=== PATIENT | female | born 1955 | race Caucasian/White ===

== ENCOUNTER 2019-11-20 10:08 | Emergency (ER) | payer MEDICARE, SELFPAY ==
[2019-11-20 10:19] VITALS: BP 144/64; PULSE 72; RESP 18; TEMP 36.4; O2SAT 99
--- NOTE | 2019-11-20 10:33 | ED.GENADULT ---
HPI - General Adult General Chief complaint: Eye Problems Stated complaint: Eye Pain Time Seen by Provider: 11/20/19 10:33 Source: patient Mode of arrival: ambulatory Limitations: no limitations History of Present Illness HPI narrative: 63-year-old female patient presents to the [facility] with complaints of a stye to the left eye as well as clicking to the left ear. Patient states she has had a lot of sinus issues for the past couple of days and is unable to take any type Zyrtec, Vero or Claritin. Patient states she is able to take Benadryl but has not tried it year. Patient states she has been taking [id number] Coricidin for her symptoms. Patient states that when she swallows or chews she notices that she has a clicking to the left ear. Patient states she is also had a little wound to the left lower lid of the eye that has been draining some green drainage yesterday. Denies any fevers. Denies any coughing, sore throat or runny nose. Related Data Home Medications Medication Instructions Recorded Confirmed Pepcid 11/20/19 ProAir HFA 11/20/19 Singulair 11/20/19 amitriptyline 25 mg PO HS 11/20/19 11/20/19 Allergies Allergy/AdvReac Type Severity Reaction Status Date / Time acetaminophen Allergy Mild Verified 06/27/18 11:10 cetirizine Allergy Mild Verified 06/27/18 11:10 ibuprofen Allergy Mild Verified 06/27/18 11:10 oxycodone Allergy Mild N/V Verified 06/27/18 11:10 Penicillins Allergy Mild BLISTERS Verified 06/27/18 11:10 SKIN WHEN SHE URINATES propoxyphene Allergy Mild N/V Verified 06/27/18 11:10 adhesive tape Allergy Unknown Verified 06/27/18 11:10 citrus Allergy Intermediate Hives / Uncoded 10/09/13 08:45 Red Face CLARITINE Allergy Mild Uncoded 11/24/08 11:17 LORETADINE Allergy Mild Uncoded 11/24/08 11:17 SHELLFISH AdvReac Intermediate Hives / Uncoded 06/27/18 11:10 Red Face Review of Systems Review of Systems: Narrative: CONSTITUTIONAL: Denies fever, chills, or sweats. EYES: Denies visual changes, redness, positive green discharge and a small wound to left lower lid ENT: Denies rhinorrhea, positive nasal congestion, denies sore throat, positive clicking to left ear CARDIOVASCULAR: Denies chest pain, palpitations, or edema. RESPIRATORY: Denies cough or dyspnea. GASTROINTESTINAL: Denies abdominal pain, nausea, vomiting, or diarrhea. GENITOURINARY: Denies dysuria or hematuria. SKIN: Denies rash or itching. MUSCULOSKELETAL: Denies back pain, joint pain, or myalgia. NEUROLOGIC: Denies headache, numbness, or weakness. PSYCHIATRIC: Denies anxiety or depression. [facility] Family History Family History Mother Family history of arthritis, Onset Age: 71 Social History Social History Alcohol intake: current Gender identity (if verbalized by the patient): Female Comments At the time of my signature I agree with nursing past medical history, surgical, social, and family history. There is no relevant family history pertinent to the presenting complaint. Exam Narrative: Exam Narrative: GENERAL: Well-appearing, well-nourished, and in no acute distress. HEAD: Normocephalic, atraumatic. Slight tenderness noted to maxillary sinuses on palpation. EYES: PERRLA and EOMI. ENT: Nares with erythema and edema noted to the left side, no rhinorrhea or epistaxis. Mucous membranes moist. Posterior pharynx with no erythema, tonsillectomy, exudates or lesions present. Bilateral TMs are clear no erythema or foreign bodies in the canal. NECK: Supple. No lymphadenopathy CHEST: Clear to auscultation. No respiratory distress. HEART: Regular rate and rhythm. No murmur heard. Normal peripheral pulses. ABDOMEN: Soft, nontender, nondistended, normal active bowel sounds. EXTREMITIES: Normal range of motion. No edema. SKIN: Warm, dry, no rash. NEURO: No focal deficits. Alert and or
== END 2019-11-20 10:52 | disposition home or self-care (01) ==
PROVIDERS: Emergency Provider Nurse Practitioner Family; PCP Internal Medicine
DX: H00.015 Hordeolum externum left lower eyelid (principal); J01.00 Acute maxillary sinusitis, unspecified; J45.909 Unspecified asthma, uncomplicated; Z87.891 Personal history of nicotine dependence; G25.81 Restless legs syndrome
CPT/HCPCS: 99213; G0463

== ENCOUNTER 2020-02-17 12:46 | Outpatient (CLI) | payer MEDICARE, SELFPAY ==
--- NOTE | ~2020-02-17 | XR_ITS ---
XR abdomen/kub 1V 02/17/2020 13:10 Indication: Left renal stone Procedure: KUB Comparison: 08/21/2019 Findings: Stable left renal stone measuring 8 mm. There are cholecystectomy clips. Bowel pattern is n onobstructive. No suspect ureteral stones. Lung bases unremarkable. Impression: 1: Stable left renal stone measuring 8 mm. Reviewed, dictated and finalized at location A. Impression: 1: Stable left renal stone measuring 8 mm.
== END 2020-02-17 12:47 | disposition home or self-care (01) ==
PROVIDERS: PCP Internal Medicine; Visit Provider Internal Medicine
DX: N20.0 Calculus of kidney (principal)
CPT/HCPCS: 74018

== ENCOUNTER 2020-06-10 06:55 | Outpatient (CLI) | payer MEDICARE, SELFPAY ==
--- NOTE | ~2020-06-10 | XR_ITS ---
EXAMINATION: XR abdomen/kub 1V DATE: 06/10/2020 08:17 INDICATION: Left-sided calcium kidney stone. TECHNIQUE: A supine view of the abdomen on 2 radiographs was obtained. COMPARISON: Abdomen radiograph 02/17/2020, CT abdomen and pelvis 03/05/2018 FINDINGS: There are no dilated loops of bowel. Surgical clips in the right upper quadrant are likely from cholecystectomy. Left kidney is obscured by bowel. IMPRESSION: 1. No visible urolithiasis. Reviewed, dictated and finalized at location B. IMPRESSION: 1. No visible urolithiasis.
== END 2020-06-10 06:56 | disposition home or self-care (01) ==
LOC: ANHIMG 08:00
PROVIDERS: PCP Internal Medicine; Visit Provider Urology
DX: N20.0 Calculus of kidney (principal)
CPT/HCPCS: 74018

== ENCOUNTER 2020-10-19 13:01 | Emergency (ER) | payer MEDICARE, SELFPAY ==
[2020-10-19 13:11] VITALS: BP 103/80; PULSE 74; RESP 20; TEMP 36.9; O2SAT 97
--- NOTE | 2020-10-19 13:11 | ED.ASTHMA ---
HPI - Asthma General Chief Complaint: Asthma Stated Complaint: Asthma Complaint Time Seen by Provider: 10/19/20 13:11 Source: patient and RN notes reviewed Mode of arrival: ambulatory Limitations: no limitations History of Present Illness HPI Narrative: 64 year old female who presents to [facility] with complaints of 3 week history of cough, sinus congestion and headache, Patient states that she was tested on the 03 of October for COVID which was negative. Patient states that she has history of asthma and was wheezing yesterday but her lungs are clear to auscultation today. Patient states that she has some tightness to the lateral and lower aspects of her bilateral chest regions that is worse when she takes a deep breath. Patient denies any shortness of breath with patient able to speak in full sentences. patient states that she has been taking Coricidin cold medication OTC and using her inhaler. patient denies any known fevers, chills or sweats. MD complaint: other (toghtness with deep breathing since this morning.URI symptoms for 3 weeks) Onset (ago): week(s) (3 weeks of URI symptoms) Severity: mild Context: recent URI Associated symptoms: dry cough and other (sinus congestion and headache) Asthma History: followed by specialist and other (allergy induced) Treatments Prior to Arrival: inhaled bronchodilator and other (singulair) Related Data Current Asthma Therapy: inhaled bronchodilator and other (singulair) Home Medications Medication Instructions Recorded Confirmed Pepcid 11/20/19 05/29/20 albuterol sulfate 90 mcg/actuation 1 puff INHALATION Q4H PRN 11/29/19 05/29/20 aerosol inhaler montelukast 10 mg tablet 10 mg PO DAILY 11/29/19 05/29/20 calcium carbonate 500 mg calcium 500 mg PO DAILY 12/06/19 05/29/20 (1,250 mg) tablet cholecalciferol (vitamin D3) 125 125 mcg PO DAILY 12/06/19 05/29/20 mcg (5,000 unit) tablet evening primrose oil 500 mg capsule 500 mg PO DAILY cap 12/06/19 05/29/20 lactobacillus combination no.8 3 3,000 mmu cells PO DAILY 12/06/19 05/29/20 billion cell capsule Allergies Allergy/AdvReac Type Severity Reaction Status Date / Time acetaminophen Allergy Mild Verified 06/27/18 11:10 cetirizine Allergy Mild Verified 06/27/18 11:10 ibuprofen Allergy Mild Verified 06/27/18 11:10 oxycodone Allergy Mild N/V Verified 06/27/18 11:10 Penicillins Allergy Mild BLISTERS Verified 06/27/18 11:10 SKIN WHEN SHE URINATES propoxyphene Allergy Mild N/V Verified 06/27/18 11:10 adhesive tape Allergy Unknown Verified 06/27/18 11:10 citrus Allergy Intermediate Hives / Uncoded 10/09/13 08:45 Red Face CLARITINE Allergy Mild Uncoded 11/24/08 11:17 LORETADINE Allergy Mild Uncoded 11/24/08 11:17 SHELLFISH AdvReac Intermediate Hives / Uncoded 06/27/18 11:10 Red Face Review of Systems Review of Systems: Narrative: CONSTITUTIONAL: Denies fever, chills, or sweats. EYES: Denies visual changes, redness, or discharge. ENT: Denies rhinorrhea, congestion, sore throat, or otalgia. CARDIOVASCULAR: tightness to posterior and lateral chest with deep breathing,no palpitations, or edema. RESPIRATORY: Positive cough, states no acute dyspnea. GASTROINTESTINAL: Denies abdominal pain, nausea, vomiting, or diarrhea. GENITOURINARY: Denies dysuria or hematuria. SKIN: Denies rash or itching. MUSCULOSKELETAL: Denies back pain, joint pain, or myalgia. NEUROLOGIC: reports some frontal headache,no numbness, or weakness. PSYCHIATRIC: Denies anxiety or depression. All systems reviewed & are unremarkable except as noted in HPI and below PMFSH Past Medical History Medical History (Updated 10/19/20 @ 18:28 by Maxine Garcia NP) Fibromyalgia Irritable bowel syndrome Mixed hyperlipidemia Restless legs syndrome Type 2 diabetes mellitus without complication, without long-term current use of insulin Vitamin D deficiency Surgical History Surgical History
== END 2020-10-19 13:46 | disposition home or self-care (01) ==
PROVIDERS: Emergency Provider Registered Nurse; PCP Internal Medicine
DX: J06.9 Acute upper respiratory infection, unspecified (principal); J45.20 Mild intermittent asthma, uncomplicated; M79.7 Fibromyalgia; E78.2 Mixed hyperlipidemia; G25.81 Restless legs syndrome; E11.9 Type 2 diabetes mellitus without complications; E55.9 Vitamin D deficiency, unspecified
CPT/HCPCS: 99213; G0463

== ENCOUNTER 2020-12-24 08:45 | Outpatient (CLI) | payer MEDICARE, SELFPAY | END 2020-12-24 08:46 | disposition home or self-care (01) | LOC: ANHCOVIDVC 08:45 | PROVIDERS: PCP Internal Medicine | DX: Z23 Encounter for immunization (principal) | CPT/HCPCS: 0001A; 91300 ==

== ENCOUNTER 2021-01-14 08:45 | Outpatient (CLI) | payer MEDICARE, SELFPAY | END 2021-01-14 08:46 | disposition home or self-care (01) | LOC: ANHCOVIDVC 08:45 | DX: Z23 Encounter for immunization (principal) | CPT/HCPCS: 0002A; 91300 ==

== ENCOUNTER → 2021-03-01 07:08 | Outpatient (CLI) | payer MEDICARE, SELFPAY ==
--- NOTE | ~2021-03-01 | MM_ITS ---
EXAMINATION: MM screening [facility] BI w jah HISTORY: Screening TECHNIQUE: Craniocaudal and mediolateral oblique 3-D tomosynthesis images were obtained and synthetic 2-D images were generated. CAD analysis was submitted and interpreted. COMPARISON: Comparison to multiple prior studies sequentially, with oldest reviewed study dated 09/16. BREAST PARENCHYMAL COMPOSITION: There are scattered areas of fibroglandular density. FINDINGS: There is a developing asymmetry in the upper outer quadrant of the right breast, middle thi rd. There are developing clustered indeterminate calcifications lower central aspect of the right chava ast. The left breast is stable without evidence for malignancy. IMPRESSION: 1. Developing right breast asymmetry and clustered indeterminate calcifications. 2. Additional mammographic views and possible breast ultrasound are recommended. BI-RADS Category 0: Incomplete: Needs additional imaging evaluation. Reviewed, dictated and finalized at location A. IMPRESSION: 1. Developing right breast asymmetry and clustered indeterminate calcifications . 2. Additional mammographic views and possible breast ultrasound are recommended . BI-RADS Category 0: Incomplete: Needs additional imaging evaluation.
== END ==
PROVIDERS: PCP Internal Medicine; Visit Provider Internal Medicine
DX: Z12.31 Encounter for screening mammogram for malignant neoplasm of breast (principal); R92.8 Other abnormal and inconclusive findings on diagnostic imaging of breast
CPT/HCPCS: 77063; 77067

== ENCOUNTER 2021-03-22 12:38 | Outpatient (CLI) | payer MEDICARE, SELFPAY ==
--- NOTE | ~2021-03-22 | MMUS_ITS ---
EXAMINATION: MM diagnostic mammo unilat RT, US breast RT complete HISTORY: Developing right breast asymmetry and clustered indeterminate calcifications reported on 02/13 screening mammogram. TECHNIQUE: Additional 3-D tomosynthesis images of the right breast were performed and synthetic 2-D i mages were generated. Magnification views of right breast in 3 projections. CAD analysis was submitte d and interpreted. High resolution complete right breast ultrasound was performed. COMPARISON: 03/01/2021 bilateral digital screening mammogram Prior mammogram including outside mammograms dating back to 10/10/2014 FINDINGS: MAMMOGRAPHIC FINDINGS: There are some scattered punctate benign-appearing microcalcifications. No malignant calcification is evident. No significant new or developing density is evident. ULTRASOUND: There is no evidence of focal abnormal solid or cystic lesion or suspicious shadowing of the right br east. IMPRESSION: 1. Benign findings 2. Routine annual mammographic screening is recommended BI-RADS Category 2: Benign finding(s). Reviewed, dictated and finalized at location A. IMPRESSION: 1. Benign findings 2. Routine annual mammographic screening is recommended BI-RADS Category 2: Benign finding(s).
== END 2021-03-22 12:39 | disposition home or self-care (01) ==
LOC: ANHIMG 12:39
PROVIDERS: PCP Internal Medicine; Visit Provider Internal Medicine
DX: R92.8 Other abnormal and inconclusive findings on diagnostic imaging of breast (principal)
CPT/HCPCS: 76641; 77065

== ENCOUNTER 2021-04-06 14:28 | Outpatient (CLI) | payer MEDICARE, SELFPAY ==
--- NOTE | ~2021-04-06 | XR_ITS ---
EXAMINATION: XR abdomen/kub 1V DATE: 04/06/2021 14:51 INDICATION: Unspecified abdominal pain. TECHNIQUE: A supine view of the abdomen on 2 radiographs was obtained. COMPARISON: CT abdomen and pelvis 03/05/2018 FINDINGS: There are no dilated loops of bowel. There are surgical clips in right abdomen. There is no visible urolithiasis. IMPRESSION: 1. Normal bowel gas pattern. Reviewed, dictated and finalized at location A.
== END 2021-04-06 14:29 | disposition home or self-care (01) ==
LOC: ANHIMG 14:32
PROVIDERS: PCP Internal Medicine; Visit Provider Internal Medicine
DX: R10.9 Unspecified abdominal pain (principal)
CPT/HCPCS: 74018

== ENCOUNTER → 2021-12-11 08:15 | Outpatient (CLI) | payer MEDICARE, SELFPAY ==
--- NOTE | ~2021-12-11 | XR_ITS ---
EXAMINATION: XR wrist RT min 3V INDICATION: Primary osteoarthritis TECHNIQUE: Four views of the right wrist are obtained. COMPARISON: None available FINDINGS: There is moderate osteoarthritis at the first carpometacarpal joint and mild osteoarthritis at the triscaphe joint. Bone alignment is normal. There is no fracture. The soft tissues are unremar kable. IMPRESSION: 1. Polyarticular osteoarthritis. Reviewed, dictated and finalized at location F. N FORESTER
== END ==
PROVIDERS: PCP Plastic Surgery; Visit Provider Plastic Surgery
DX: M19.041 Primary osteoarthritis, right hand (principal)
CPT/HCPCS: 73110

== ENCOUNTER 2022-02-28 12:00 | Emergency (ER) | payer MEDICARE, SELFPAY ==
--- NOTE | ~2022-02-28 | XR_ITS ---
EXAMINATION: XR abdomen/kub 1V DATE: 02/28/2022 12:43 INDICATION: Flank pain. TECHNIQUE: A supine view of the abdomen was obtained. COMPARISON: Abdomen radiograph 04/06/2021 FINDINGS: There are no dilated loops of bowel. There is a moderate volume of stool in the colon. Ther e are surgical clips in right abdomen. There is no visible urolithiasis. IMPRESSION: 1. No visible urolithiasis. 2. Normal bowel gas pattern. Reviewed, dictated and finalized at location B.
--- NOTE | 2022-02-28 12:10 | ED.FEMALEGU ---
HPI - Female Genitourinary General Chief complaint: Urogenital-Female Stated complaint: Possible UTI Time Seen by Provider: 02/28/22 12:10 Source: patient and RN notes reviewed Mode of arrival: ambulatory Limitations: no limitations History of Present Illness HPI Narrative: 66-year-old female presented for complaint of bilateral flank and low back pain and vaginal burning onset yesterday. States the burning occurs just after she has completed urinating. Endorses an episode of urinary incontinence yesterday upon standing. Back pain also worse upon standing or stretching. She took Azo this morning. she endorses a history of kidney stones 2018. States the pain does not feel similar or that severe. Endorses 1 week ago she had a boil on her JOANN area which she expressed herself. She states he still has some of it there. She denies any vaginal bleeding or drainage. Denies hematuria, frequency, urgency, n/v/d/f/c. Hx pre DM, HLD, cervicalgia. Related Data Home Medications Medication Instructions Recorded Confirmed albuterol sulfate 90 mcg/actuation 1 puff INHALATION Q4H PRN 11/29/19 02/28/22 aerosol inhaler montelukast 10 mg tablet 10 mg PO DAILY 11/29/19 02/28/22 calcium carbonate 500 mg calcium 500 mg PO DAILY 12/06/19 02/28/22 (1,250 mg) tablet cholecalciferol (vitamin D3) 125 125 mcg PO DAILY 12/06/19 02/28/22 mcg (5,000 unit) tablet evening primrose oil 500 mg capsule 500 mg PO DAILY cap 12/06/19 02/28/22 lactobacillus combination no.8 3 3,000 mmu cells PO DAILY 12/06/19 02/28/22 billion cell capsule fluticasone propionate 50 1 spray INTRANASAL DAILY 06/08/21 02/28/22 mcg/actuation nasal spray,suspension magnesium 200 mg tablet 400 mg PO DAILY tablet 09/15/21 02/28/22 atorvastatin 10 mg PO DAILY 02/28/22 02/28/22 blood sugar diagnostic [OneTouch 02/28/22 02/28/22 Ultra Test] famotidine 40 mg PO DAILY 02/28/22 02/28/22 Allergies Allergy/AdvReac Type Severity Reaction Status Date / Time acetaminophen Allergy Mild Rash Verified 02/28/22 12:06 cetirizine Allergy Mild Rash Verified 02/28/22 12:06 ibuprofen Allergy Mild Rash Verified 02/28/22 12:06 oxycodone Allergy Mild N/V Verified 02/28/22 12:06 Penicillins Allergy Mild BLISTERS Verified 02/28/22 12:06 SKIN WHEN SHE URINATES propoxyphene Allergy Mild N/V Verified 02/28/22 12:06 adhesive tape Allergy Unknown Rash Verified 02/28/22 12:06 amoxicillin AdvReac Intermediate Blister Verified 02/28/22 12:31 [id number] Reductase AdvReac Intermediate Leg Verified 02/28/22 12:06 Inhibitor cramps, pain citrus Allergy Intermediate Hives / Uncoded 02/28/22 12:06 Red Face CLARITINE Allergy Mild Rash Uncoded 02/28/22 12:06 LORETADINE Allergy Mild Rash Uncoded 02/28/22 12:06 SHELLFISH AdvReac Intermediate Hives / Uncoded 02/28/22 12:06 Red Face Review of Systems Review of Systems: CONSTITUTIONAL: Denies body aches, fever, chills, or sweats. CARDIOVASCULAR: Denies chest pain, palpitations, or edema. RESPIRATORY: Denies cough or dyspnea. GASTROINTESTINAL: Denies abdominal pain, nausea, vomiting, or diarrhea. GENITOURINARY: Reports flank pain SKIN: Denies rash MUSCULOSKELETAL: endorses back pain PMFSH Past Medical History Medical History [place] BMI 40.0-44.9, adult Fibromyalgia Irritable bowel syndrome Mixed hyperlipidemia Restless legs syndrome Type 2 diabetes mellitus without complication, without long-term current use of insulin Vitamin D deficiency Surgical History Surgical History H/O lithotripsy Hx of kidney removal Family History Family History Mother Family history of arthritis, Onset Age: 71 Social History Social History Smoking packs per day: 0.3 Smoking ci
[2022-02-28 12:11] VITALS: BP 85/60; PULSE 81; RESP 18; TEMP 36.2; O2SAT 98
[2022-02-28 12:13] VITALS: BP 85/60; PULSE 81; RESP 18; TEMP 36.2; O2SAT 98
== END 2022-02-28 13:04 | disposition home or self-care (01) ==
PROVIDERS: Emergency Provider Nurse Practitioner Family; PCP Internal Medicine
DX: R30.0 Dysuria (principal); M54.50 Low back pain, unspecified; Z87.891 Personal history of nicotine dependence; M79.7 Fibromyalgia; E78.2 Mixed hyperlipidemia; G25.81 Restless legs syndrome; E11.9 Type 2 diabetes mellitus without complications; Z79.84 Long term (current) use of oral hypoglycemic drugs; E55.9 Vitamin D deficiency, unspecified
CPT/HCPCS: 74018; 81003; 87086; 99213; G0463

== ENCOUNTER → 2022-09-13 12:11 | Outpatient (CLI) | payer MEDICARE, SELFPAY ==
--- NOTE | ~2022-09-13 | MM_ITS ---
EXAMINATION: MM screening [facility] BI w jah HISTORY: Screening mammogram TECHNIQUE: Craniocaudal and mediolateral oblique 3-D tomosynthesis images were obtained and synthetic 2-D images were generated. CAD analysis was submitted and interpreted. COMPARISON: 03/22/2021, 03/01/2021, 09/05/2019 BREAST PARENCHYMAL COMPOSITION: The breasts are almost entirely fatty. FINDINGS: Scattered benign-appearing calcifications are present. No suspicious mass, calcification, o r architectural distortion are identified in either breast to suggest malignancy. There has been no s uspicious interval change. IMPRESSION: 1. No mammographic evidence of malignancy. 2. Recommend routine screening mammography in one year. BI-RADS Category 2: Benign finding(s). Reviewed, dictated and finalized at location A. APIST ASST
== END ==
PROVIDERS: PCP Internal Medicine; Visit Provider Internal Medicine
DX: Z12.31 Encounter for screening mammogram for malignant neoplasm of breast (principal)
CPT/HCPCS: 77063; 77067

== ENCOUNTER → 2023-07-12 13:15 | Outpatient (CLI) | payer MEDICARE, SELFPAY ==
--- NOTE | ~2023-07-12 | MR_ITS ---
MRI of the left shoulder Technique: Axial proton-density fat-sat images, coronal proton density fat-sat and T2 fat-sat images, and sagittal T1-weighted and T2 fat-sat images were acquired. Clinical History: Pain Findings: There is advanced AC joint degenerative change, bony productive changes distal clavicle and small subacromial spur. Coracoclavicular, coracoacromial, and coracohumeral ligaments appear to be i ntact. There is a 1.1 x 0.8 cm area of full-thickness tearing at the posterior aspect of the supraspinatus t endon centrally, somewhat near the myotendinous junction region. Infraspinatus tendon is intact, with moderate tendinosis distally. Subscapularis tendon is intact, with mild tendinosis. Intra-articular biceps tendon is poorly seen. There is probable degenerative tearing of the superior labrum extending to the anterosuperior portion . No significant degenerative change or effusion of the glenohumeral joint. Inferior glenohumeral ligam ent is intact. No muscle atrophy or edema. Impression: 1.1 x 0.8 cm full-thickness tear at the posterior aspect of the supraspinatus tendon, as detailed abo ve. Moderate tendinosis of the infraspinatus tendon. Poor visualization of the intra-articular biceps tendon. Complete rupture is suspected with mild retr action anterior the bicipital groove. Degenerative superior labral tear extending to the anterosuperior portion. Advanced AC joint degenerative change. Reviewed, dictated and finalized at [facility]. Impression: 1.1 x 0.8 cm full-thickness tear at the posterior aspect of the supraspinatus t endon, as detailed above. Moderate tendinosis of the infraspinatus tendon. Poor visualization of the intra-articular biceps tendon. Complete rupture is [place] spected with mild retraction anterior the bicipital groove. Degenerative superior labral tear extending to the anterosuperior portion. Advanced AC joint degenerative change.
== END ==
PROVIDERS: PCP Internal Medicine; Visit Provider Nurse Practitioner Family
DX: M19.012 Primary osteoarthritis, left shoulder (principal)
CPT/HCPCS: 73221

== ENCOUNTER 2023-08-09 14:30 | Outpatient (RCR) | payer MEDICARE, SELFPAY | END 2023-10-02 09:30 | disposition home or self-care (01) | LOC: ANHDMC 14:30 | PROVIDERS: PCP Internal Medicine; Visit Provider Nurse Practitioner Family | DX: E11.649 Type 2 diabetes mellitus with hypoglycemia without coma (principal); Z71.89 Other specified counseling | CPT/HCPCS: G0108; G0109 ==

== ENCOUNTER 2023-09-08 07:47 | Outpatient (CLI) | payer MEDICARE, SELFPAY ==
--- NOTE | ~2023-09-08 | XR_ITS ---
EXAMINATION: XR UGIAC w barium swallow DATE: 09/08/2023 08:48 INDICATION: Atypical chest pain with gastroesophageal reflux disease and shortness of breath TECHNIQUE: The patient drank thick barium, gas-producing crystals, and thin barium. A total of 10,280 fluoroscopic images of the esophagus, stomach, and proximal small bowel were obtained. Fluoroscopy e xposure time was 2.2 minutes. Total DAP was 18.154 Gycm^2 COMPARISON: None. FINDINGS: The esophagus is normal without mass or stricture. Esophageal motility is normal. There is no hiatal hernia. There was no gastroesophageal reflux with provocative maneuvers. The stomach and pr oximal small bowel are normal. IMPRESSION: 1. Normal upper GI study. Reviewed, dictated and finalized at location A. T RELATIONS EXECUTIVE IMPRESSION: 1. Normal upper GI study.
== END 2023-09-08 07:48 | disposition home or self-care (01) ==
PROVIDERS: PCP Emergency Medicine; Visit Provider Nurse Practitioner
DX: R06.02 Shortness of breath (principal); R07.89 Other chest pain; K21.9 Gastro-esophageal reflux disease without esophagitis
CPT/HCPCS: 74246

== ENCOUNTER → 2023-10-11 12:42 | Outpatient (CLI) | payer MEDICARE, SELFPAY ==
--- NOTE | ~2023-10-11 | DEXA_ITS ---
Bone Density Report Name: LIZABETH BREWSTER Age: 67 Sex: Female Ethnicity: White Date of : 1955 Indication: postmenopausal; screening for osteoporosis; height loss; Referring Provider: HUBERT TERESA Study: Bone densitometry was performed. Exam Date: October 11, 2023 Accession number: [id number] Bone Density: Region BMD T-score Z-score Classification AP Spine (L1-L4) 1.094 0.4 2.3 Normal Femoral Neck (Left) 0.790 -0.5 1.1 Normal Total Hip (Left) 0.938 0.0 1.3 Normal Femoral Neck (Right) 0.734 -1.0 0.6 Normal Total Hip (Right) 0.976 0.3 1.6 Normal Total Hip Mean 0.957 0.2 1.5 Normal World Health Organization criteria for BMD impression classify patients as: Normal (T-score at or above -1.0), Osteopenia (T-score between -1.0 and -2.5), or Osteoporosis (T-score at or below -2.5). 10-year Fracture Risk: FRAX not reported because: All T-scores for Spine Total, Hip Total, Femoral Neck at or above -1.0 Clinical Information Provided by Patient: Has used the following medications: Vitamin D, Calcium Patient maximum height was 64 Menopause Age: 59 No regular weight bearing exercise Drinks caffeinated beverages Onset of menses at age 12 Number of children 1 Impression: The patient has normal bone mass. Discussion: BONE DENSITY IS ABOVE THE MINIMUM DESIRABLE LEVEL AT ALL SKELETAL SITES TESTED. This patient?s bone mineral density is above the minimum desirable level (T-score -1.0 or better) at all sites measured. The patient should follow a healthful lifestyle (good nutrition with adequate calcium and vitamin D, and appropriate weight-bearing exercise). Follow-Up: Consider repeating this study in 5 years or sooner if there is some new clinical indication. Reported by: BRAYDEN on 10/11/2023 1:03:00 PM. Reviewed, dictated and finalized at location ADwight CHRISTY
== END ==
PROVIDERS: PCP Emergency Medicine; Visit Provider Emergency Medicine
DX: Z78.0 Asymptomatic menopausal state (principal)
CPT/HCPCS: 77080

== ENCOUNTER → 2023-10-20 10:24 | Outpatient (CLI) | payer MEDICARE, SELFPAY ==
--- NOTE | ~2023-10-20 | MM_ITS ---
EXAMINATION: MM screening [facility] BI w jah HISTORY: Screening mammogram TECHNIQUE: Craniocaudal and mediolateral oblique 3-D tomosynthesis images were obtained and synthetic 2-D images were generated. CAD analysis was submitted and interpreted. COMPARISON: Prior mammograms dating back to 01/24/2017 BREAST PARENCHYMAL COMPOSITION: There are scattered areas of fibroglandular density. FINDINGS: A stable chronic focal asymmetry in the lower right breast is considered benign given the l ack of interval change. No suspicious mass, calcification, or architectural distortion are identified in either breast to suggest malignancy. There has been no suspicious interval change. IMPRESSION: 1. No mammographic evidence of malignancy. 2. Recommend routine screening mammography in one year. BI-RADS Category 2: Benign finding(s). Reviewed, dictated and finalized at location A. ICATING MACHINE OPERATOR
== END ==
PROVIDERS: PCP Emergency Medicine; Visit Provider Nurse Practitioner Family
DX: Z12.31 Encounter for screening mammogram for malignant neoplasm of breast (principal)
CPT/HCPCS: 77063; 77067

== ENCOUNTER 2023-11-30 14:39 | Outpatient (RCR) | payer MEDICARE, SELFPAY | END 2023-11-30 16:55 | disposition home or self-care (01) | LOC: ANHDMC 14:39 | PROVIDERS: PCP Emergency Medicine; Visit Provider Nurse Practitioner Family | DX: E11.649 Type 2 diabetes mellitus with hypoglycemia without coma (principal); Z71.89 Other specified counseling | CPT/HCPCS: G0109 ==

== ENCOUNTER 2024-02-06 10:00 | Emergency (ER) | payer MEDICARE, SELFPAY ==
--- NOTE | 2024-02-06 10:09 | ED.URI ---
HPI - URI/Sore Throat General Chief Complaint: Upper Respiratory Infection Stated Complaint: Dizziness/Nausea Time Seen by Provider: 02/06/24 10:10 Source: patient Mode of arrival: ambulatory Limitations: no limitations History of Present Illness HPI Narrative: Jade is a 68-year-old female patient presenting to the clinic today with complaints of dizziness and nausea since around 4:00 a.m. this morning. She reports she was letting the dogs at this morning and developed unsteadiness and felt as though things were and motion when she was not. States she is getting dizzy going from a lying to sitting/sitting to standing position as well as when standing up still she feels as though things are moving around her when they are not. Fine as though her left ear was popping this morning. Denies any chest pain, shortness of breath, or visual changes. History of hypoglycemia/diabetes, stress incontinence, Related Data Home Medications Medication Instructions Recorded Confirmed calcium carbonate 500 mg PO DAILY 12/06/19 12/04/23 cholecalciferol (vitamin D3) 125 125 mcg PO DAILY 12/06/19 12/04/23 mcg (5,000 unit) tablet (Vitamin D3) fluticasone propionate 50 1 spray intranasal DAILY 06/08/21 12/04/23 mcg/actuation nasal spray,suspension (Flonase Allergy Relief) magnesium 200 mg tablet 400 mg PO DAILY 09/15/21 12/04/23 chlorpheniramine maleate 4 mg 4 mg PO Q6H PRN 12/28/22 12/04/23 tablet (Allergy (chlorpheniramine)) evening primrose oil 500 mg capsule 1,000 mg PO DAILY 12/28/22 12/04/23 indlevcxuazn-mhwhylkx-azlbzp tablet 1 tablet PO DAILY 12/28/22 12/04/23 famotidine 40 mg tablet 40 mg PO DAILY 10/26/23 12/04/23 epinephrine 0.3 mg/0.3 mL 0.3 mg IM ONCE 12/04/23 injection, auto-injector Allergies Allergy/AdvReac Type Severity Reaction Status Date / Time loratadine Allergy Intermediate Rash Verified 12/04/23 13:10 acetaminophen Allergy Mild Rash Verified 12/04/23 13:10 cetirizine Allergy Mild Rash Verified 12/04/23 13:10 ibuprofen Allergy Mild Rash Verified 12/04/23 13:10 oxycodone Allergy Mild N/V Verified 12/04/23 13:10 Penicillins Allergy Mild BLISTERS Verified 12/04/23 13:10 SKIN WHEN SHE URINATES propoxyphene Allergy Mild N/V Verified 12/04/23 13:10 adhesive tape Allergy Unknown Rash Verified 12/04/23 13:10 amoxicillin AdvReac Intermediate Blister Verified 12/04/23 13:10 Pbnlkts-CHU-NjF Reductase AdvReac Intermediate Leg Verified 12/04/23 13:10 Inhibitor cramps, pain citrus Allergy Intermediate Hives / Uncoded 12/04/23 13:10 Red Face SHELLFISH AdvReac Intermediate Hives / Uncoded 12/04/23 13:10 Red Face Review of Systems Review of Systems: Pertinent positives per HPI. Patient denies any fever, chills, rash, headache, visual changes, cough, runny nose, sore throat, shortness of breath, chest pain, palpitations, nausea, vomiting, diarrhea, constipation, abdominal pain, or any urinary issues. [facility] Past Medical History Medical History Atypical chest pain Beau's line BMI 40.0-44.9, adult Esophageal spasm Fibromyalgia GERD (gastroesophageal reflux disease) Hiatal hernia Hyperlipidemia Irritable bowel syndrome Mixed hyperlipidemia Restless legs syndrome SOB (shortness of breath) Type 2 diabetes mellitus without complication, without long-term current use of insulin Vitamin D deficiency Surgical History Surgical History H/O lithotripsy Hx of kidney removal Family History Family History Mother Family history of arthritis, Onset Age: 71 Social History Social History Smoking packs per day: 0.3 Smoking cigarettes per day: 6.0 Years smoked: 15 Smoking pack-years: 4.50 Smoking status: Former smoker Second hand t
[2024-02-06 10:10] VITALS: BP 143/68; PULSE 72; RESP 16; TEMP 35.9; O2SAT 98
--- NOTE | 2024-02-06 10:23 | ECG_ITS ---
SEE SCANNED COPY FOR CONFIRMED REPORT. MTDD
[2024-02-06 10:34] LABS: Glucose Point of Care 143 mg/dl (65-105)
[2024-02-06 10:35] VITALS: BP 142/77
[2024-02-06 10:37] VITALS: BP 141/85
[2024-02-06 10:39] VITALS: BP 141/77
== END 2024-02-06 11:00 | disposition home or self-care (01) ==
PROVIDERS: Emergency Provider Nurse Practitioner Family; PCP Emergency Medicine
DX: R42 Dizziness and giddiness (principal); R81 Glycosuria; E11.65 Type 2 diabetes mellitus with hyperglycemia; Z87.891 Personal history of nicotine dependence; M79.7 Fibromyalgia; K21.9 Gastro-esophageal reflux disease without esophagitis; E78.5 Hyperlipidemia, unspecified; E78.2 Mixed hyperlipidemia; G25.81 Restless legs syndrome; E55.9 Vitamin D deficiency, unspecified
CPT/HCPCS: 81003; 82948; 93005; 99213; G0463

== ENCOUNTER 2024-04-04 16:56 | Emergency (ER) | payer MEDICARE, SELFPAY ==
[2024-04-04 17:00] VITALS: BP 148/84; PULSE 92; RESP 18; TEMP 36.3; O2SAT 100
--- NOTE | 2024-04-04 20:10 | PC.NURSE ---
Pt to intake desk to verbalize i am not going to have any blood drawn or stay. I have multiple older dogs that need to be taken care of so I can not wait any longer. This rn verbalized that if she needs to come back that we are open 08/05.
== END 2024-04-04 20:42 | disposition left against medical advice (07) ==
LOC: ANHED 20:27
PROVIDERS: PCP Emergency Medicine
DX: K59.00 Constipation, unspecified (principal)
CPT/HCPCS: 99199

== ENCOUNTER 2024-04-16 06:38 | Outpatient (CLI) | payer MEDICARE, SELFPAY ==
--- NOTE | ~2024-04-16 | XR_ITS ---
EXAMINATION: XR foot RT 2V DATE: 04/16/2024 06:58 INDICATION: Right foot pain. TECHNIQUE: 2 views of right foot were obtained. COMPARISON: Right foot radiographs 10/09/2013 FINDINGS: Bone alignment is normal. No fracture. There is mild osteoarthritis of some of the interpha langeal joints and midfoot joints. There is an enthesophyte at plantar aspect of calcaneal tuberosity . IMPRESSION: 1. Mild polyarticular osteoarthritis. Reviewed, dictated and finalized at location A.
== END 2024-04-16 06:39 | disposition home or self-care (01) ==
PROVIDERS: PCP Emergency Medicine; Visit Provider Emergency Medicine
DX: M19.071 Primary osteoarthritis, right ankle and foot (principal)
CPT/HCPCS: 73620

== ENCOUNTER 2024-05-15 11:16 | Emergency (ER) | payer MEDICARE, SELFPAY ==
--- NOTE | ~2024-05-15 | XR_ITS ---
XR foot RT min 3V Ordering provider: JASON Puri History: . rt lateral foot pain s/p injury 3 days ago . Comparison: April 16, 2024 FINDINGS: BONES: Lucency seen at the base of the fifth metatarsal bone which may be a nutrient vessel evaluatio n for tenderness in the area is advised. Otherwise, No definite acute fracture or dislocation. Calcan eal spur. JOINT SPACES: Severe osteoarthritic changes of the subtalar joint.. Mild osteoarthritic changes of th e anterior joint. No tarsal coalition. SOFT TISSUES: Normal. IMPRESSION: No definite acute osseous abnormality of the right foot. Clinical evaluation for tenderness in the ar ea of the base of the fifth metatarsal bone is advised. Reviewed, dictated and finalized at location A. IMPRESSION: No definite acute osseous abnormality of the right foot. Clinical evaluation fo r tenderness in the area of the base of the fifth metatarsal bone is advised.
[2024-05-15 11:30] VITALS: BP 135/79; PULSE 71; RESP 16; TEMP 37.1; O2SAT 100
--- NOTE | 2024-05-15 12:47 | ED.GENADULT ---
HPI - General Adult General Chief complaint: Extremity Injury, Lower Stated complaint: right ankle injury Source: patient Mode of arrival: ambulatory Limitations: no limitations History of Present Illness HPI narrative: Patient presents for evaluation of right foot pain for last 3 days. She was carrying laundry when she stepped on a dog toy. She twisted her right foot. She has experienced bruising and swelling to the right foot. She rates her pain as 7-8/10. She describes the pain as pressure . She has associated numbness and tingling. She has been taking Tylenol for pain. She states she cannot take NSAIDs. She has been ambulating with a cane, limiting the amount of weight-bearing on her right lower extremity. Related Data Home Medications Medication Instructions Recorded Confirmed calcium carbonate 500 mg PO DAILY 12/06/19 05/15/24 cholecalciferol (vitamin D3) 125 125 mcg PO DAILY 12/06/19 05/15/24 mcg (5,000 unit) tablet (Vitamin D3) fluticasone propionate 50 1 spray intranasal DAILY 06/08/21 05/15/24 mcg/actuation nasal spray,suspension (Flonase Allergy Relief) magnesium 200 mg tablet 400 mg PO DAILY 09/15/21 05/15/24 chlorpheniramine maleate 4 mg 4 mg PO Q6H PRN Allergy Symptoms 12/28/22 05/15/24 tablet (Allergy (chlorpheniramine)) evening primrose oil 500 mg capsule 1,000 mg PO DAILY 12/28/22 05/15/24 imvpwwvyzeed-cuwiqrpr-nbmtdw tablet 1 tablet PO DAILY 12/28/22 05/15/24 Allergies Allergy/AdvReac Type Severity Reaction Status Date / Time loratadine Allergy Intermediate Rash Verified 04/04/24 16:58 semaglutide [From Rybelsus] Allergy Intermediate Abdominal Verified 04/04/24 16:58 Pain acetaminophen Allergy Mild Rash Verified 04/04/24 16:58 cetirizine Allergy Mild Rash Verified 04/04/24 16:58 ibuprofen Allergy Mild Rash Verified 04/04/24 16:58 oxycodone Allergy Mild N/V Verified 04/04/24 16:58 Penicillins Allergy Mild BLISTERS Verified 04/04/24 16:58 SKIN WHEN SHE URINATES propoxyphene Allergy Mild N/V Verified 04/04/24 16:58 adhesive tape Allergy Unknown Rash Verified 04/04/24 16:58 amoxicillin AdvReac Intermediate Blister Verified 04/04/24 16:58 Ouvjudr-IGB-RyL Reductase AdvReac Intermediate Leg Verified 04/04/24 16:58 Inhibitor cramps, pain citrus Allergy Intermediate Hives / Uncoded 04/04/24 16:58 Red Face SHELLFISH AdvReac Intermediate Hives / Uncoded 04/04/24 16:58 Red Face Review of Systems Review of Systems: CONSTITUTIONAL: Denies fever, chills, or sweats. EYES: Denies visual changes, redness, or discharge. ENT: Denies rhinorrhea, congestion, sore throat, or otalgia. CARDIOVASCULAR: Denies chest pain, palpitations, or edema. RESPIRATORY: Denies cough or dyspnea. GASTROINTESTINAL: Denies abdominal pain, nausea, vomiting, or diarrhea. GENITOURINARY: Denies dysuria or hematuria. SKIN: Reports bruising in the right foot. MUSCULOSKELETAL: Reports pain and swelling in the right foot. NEUROLOGIC: Denies headache, numbness, dizziness, or weakness. PSYCHIATRIC: Denies anxiety or depression. [facility] Past Medical History Medical History Atypical chest pain Beau's line BMI 40.0-44.9, adult Esophageal spasm Fibromyalgia Foot fracture GERD (gastroesophageal reflux disease) Hiatal hernia Hyperlipidemia Irritable bowel syndrome Mixed hyperlipidemia Restless legs syndrome SOB (shortness of breath) Type 2 diabetes mellitus without complication, without long-term current use of insulin Vitamin D deficiency Surgical History Surgical History H/O lithotripsy Hx of kidney removal Family History Family History Mother Family history of arthritis, Onset Age: 71 Social History Social History Smok
== END 2024-05-15 13:01 | disposition home or self-care (01) ==
PROVIDERS: Emergency Provider Nurse Practitioner; PCP Emergency Medicine
DX: S92.354A Nondisplaced fracture of fifth metatarsal bone, right foot, initial encounter for closed fracture (principal); W22.8XXA Striking against or struck by other objects, initial encounter; M79.7 Fibromyalgia; K21.9 Gastro-esophageal reflux disease without esophagitis; E78.2 Mixed hyperlipidemia; G25.81 Restless legs syndrome; E11.9 Type 2 diabetes mellitus without complications; E55.9 Vitamin D deficiency, unspecified; Z87.891 Personal history of nicotine dependence
CPT/HCPCS: 73630; 99214; G0463

== ENCOUNTER 2024-12-17 11:33 | Emergency (ER) | payer MEDICARE, SELFPAY ==
--- NOTE | 2024-12-17 11:43 | ED.EYEPROB ---
HPI - Eye Problem General Chief complaint: Eye Problems Stated complaint: right eye red, blisters ,discharge Time Seen by Provider: 12/17/24 11:50 Source: patient, RN notes reviewed and old records reviewed Mode of arrival: ambulatory Limitations: no limitations History of Present Illness HPI Narrative: 69-year-old female presents to the [facility] with complaints of right lower eyelid burning, painful and had blisters. States Monday afternoon started was some redness under the right eye, painful. Blisters developed on Monday. States that on Monday she popped although the blisters, washed it with a ?water down peroxide? and started using genc-utk-ukatyxf eyedrops for a stye and for dryness. Patient reports continued burning to the eyelid. Denies any blurry vision however visual acuity reviewed previous chart from October 10 in which the right eye was 20/25. Visual acuity today right eye 20/40, left eye 20/25, bilateral 20/25. Patient does normally wear glasses. Patient reports a couple of years ago she did have 1 of her shingles shots. Onset (ago): day(s) (3) Treatments Prior to Arrival: irrigated eye, OTC eye drops and other (cleaned with peroxide) Related Data Home Medications ?Medication ?Instructions ?Recorded ?Confirmed ?Last Taken ?Type calcium carbonate 500 mg PO DAILY 12/06/19 12/17/24 Unknown History cholecalciferol (vitamin D3) 125 125 mcg PO DAILY 12/06/19 12/17/24 Unknown History mcg (5,000 unit) tablet (Vitamin D3) fluticasone propionate 50 1 spray intranasal DAILY 06/08/21 12/17/24 Unknown History mcg/actuation nasal spray,suspension (Flonase Allergy Relief) magnesium 200 mg tablet 400 mg PO DAILY 09/15/21 12/17/24 Unknown History chlorpheniramine maleate 4 mg 4 mg PO Q6H PRN Allergy Symptoms 12/28/22 12/17/24 Unknown History tablet (Allergy (chlorpheniramine)) evening primrose oil 500 mg capsule 1,000 mg PO DAILY 12/28/22 12/17/24 Unknown History uvanurdlxcji-ggbmowbg-wsybma tablet 1 tablet PO DAILY 12/28/22 12/17/24 Unknown History empagliflozin 5 mg-metformin ER 1 tablet PO DAILY 12/17/24 12/17/24 Unknown History 1,000 mg tablet,extended release 24 hr (Synjardy XR) Allergies Allergy/AdvReac Type Severity Reaction Status Date / Time loratadine Allergy Intermediate Rash Verified 12/17/24 11:36 semaglutide (From Rybelsus) Allergy Intermediate Abdominal Verified 12/17/24 11:36 Pain acetaminophen Allergy Mild Rash Verified 12/17/24 11:36 cetirizine Allergy Mild Rash Verified 12/17/24 11:36 ibuprofen Allergy Mild Rash Verified 12/17/24 11:36 oxycodone Allergy Mild N/V Verified 12/17/24 11:36 Penicillins Allergy Mild BLISTERS Verified 12/17/24 11:36 SKIN WHEN SHE URINATES propoxyphene Allergy Mild N/V Verified 12/17/24 11:36 adhesive tape Allergy Unknown Rash Verified 12/17/24 11:36 amoxicillin AdvReac Intermediate Blister Verified 12/17/24 11:36 Rdbclxr-RBN-ZhJ Reductase AdvReac Intermediate Leg Verified 12/17/24 11:36 Inhibitor cramps, pain citrus Allergy Intermediate Hives / Uncoded 12/17/24 11:36 Red Face SHELLFISH AdvReac Intermediate Hives / Uncoded 12/17/24 11:36 Red Face Review of Systems Review of Systems: All systems reviewed & are unremarkable except as noted in HPI and below Constitutional: Constitutional: Reports no additional constitutional complaints Eyes: Eyes: Reports as per HPI, Denies seeing flashes, Denies photophobia and Denies spots in vision ENT: Reports system reviewed and no additional complaints, except as documented Cardiovascular: Cardiovascular: Reports no additional cardiovascular complaints, Denies chest pain and Denies dyspnea Respiratory: Respiratory: Reports no additional respiratory complaints, Denies chest congestion, Denies cough and Denies dyspnea Musculoskeletal: Musculoskeletal: Reports no additional musculoskeletal complaints Integumentary/Breasts: Skin/Breast: Reports as per HPI PMF Past Medical History Medical History Urinary tract infection Foot fracture GERD (gastroesophageal reflux disease) SOB (shortness of breath) Atypical chest pain Esophageal spasm Hiatal hernia Hyperlipidemia BMI 40.0-44.9, adult Beau's line Fibromyalgia Irritable bowel syndrome Mixed hyperlipidemia Restless legs syndrome Type 2 diabetes mellitus without complication, without long-term current use of insulin Vitamin D deficiency Surgical History Surgical History H/O lithotripsy Hx of kidney removal Family History Family History Mother Family history of arthritis, Onset Age: 71 Social History Social History Smoking packs per day: 0.3 Smoking cigarettes per day: 6.0 Years smoked: 15 Smoking pack-years: 4.50 Smoking status: Former smoker Second hand tobacco smoke exposure: No Smoking end date: 10/20/93 Alcohol intake: former Substance use: never Substance use type: does not use Do You Feel Safe in your Home?: Yes Lack of Transportation: No Lack of Food: Never True Current Housing: I Have Housing Concerned About Future Housing: No Difficulty Paying Gas/Electric Bills: No Difficulty Paying for Meds: No Currently Unemployed: No Education: Associate Degree Difficulty w/ Childcare or Family Care: No Gender identity (if verbalized by the patient): Female Comments At the time of my signature, I reviewed and agree with the nursing past medical, surgical, social, and family history. There is no relevant family history pertinent to the patient complaint. Exam Const: General: cooperative, healthy appearing, comfortable, no acute distress, well developed, alert and well nourished Nutritional Appearance: well nourished and obese Orientation/consciousness: patient oriented x3 Limitations: no limitations HENMT: Head: normal to inspection Ears: hearing grossly normal bilaterally, external ears normal, TM's normal bilaterally, EAC's normal, mastoids normal and no periauricular adenopathy Mouth: Yes Normal oral and palatal mucosa present, Yes lip normal, Yes tongue normal and Yes moist mucous membranes Eyes: General: appearance normal, both eyes and all related structures Visual Monteiro: normal visual monteiro by confrontation Alignment and Position: alignment normal Eyelids: eyelid abnormality right lower eyelid erythema, swelling and other (multiple sores ) Conjunctivae: conjunctival abnormality right conjunctival injection localized (lower shen , blisters noted) Cornea: corneas normal and fluorescein used Pupils: Equal, round and reactive pupils present EOM: EOMs intact bilaterally Direct Ophthalmoscopy: no photophobia Other: Multiple lesions noted to the lower eye lid with the use of fluorescein when doing the exam the cornea. No dendrites noted to the cornea. Neck: Neck: normal visual inspection, full ROM, no lymphadenopathy and no meningeal signs Chest: Chest palpation & inspection: normal inspection of the chest Resp: Effort & Inspection: normal respiratory effort and able to speak in complete sentences Cardio: Rate: regular rate Skin: General skin exam: normal color Other: right lower eye lid with erythema Neuro: General: patient oriented x3, gait normal, moves all extremities and no meningeal signs Cognition (Neuro): normal cognition Speech: normal speech Gait exam (Neuro): Normal gait present Extrem: General: normal to inspection, full ROM, capillary refill normal and normal gait Psych: Appearance: grossly normal and well kempt Mental Status: mental status grossly normal Speech and movement: Normal speech and movement present and Clear speech present Affect: normal affect Attitude: cooperative Course Course Emergency Course: Spoke with Dr. Mills and discussed case. Concern for shingles to the right eyelid, lower lid. Discussed doing a visual acuity, eye set up with fluorescein. Will call out to [facility]. [phone] call to [facility], spoke with Fifi GARZA at the transfer center. Call to Ophthalmology. Awaiting call back. call back dr Dr Rodriguez, DIsscussedn patient, made appointment for patient at 10:15 a.m. on [facility]. Suggested erythromycin ointment, bowel cycle of your 1 g t.i.d.. Discussed this with patient, she verbalized understanding and agreed to attend the appointment. Level of Care: Express Care Visit Vital Signs Vital signs: Vital Signs Temperature 97.6 F 12/17/24 11:48 Pulse Rate 88 12/17/24 11:48 Respiratory Rate 16 12/17/24 11:48 Blood Pressure 151/82 H 12/17/24 11:48 Pulse Oximetry 99 12/17/24 11:48 Oxygen Delivery Room Air 12/17/24 11:48 Temperature 97.6 F 12/17/24 11:48 Pulse Rate 88 12/17/24 11:48 Respiratory Rate 16 12/17/24 11:48 Blood Pressure 151/82 H 12/17/24 11:48 Pulse Oximetry 99 12/17/24 11:48 Oxygen Delivery Room Air 12/17/24 11:48 Reviewed MDM - Eye Problem MDM Narrative Medical decision making narrative: Patient sitting exam room. Patient is nontoxic vitals are stable except blood pressure mildly elevated. Patient with suspected shingles to the right lower eyelid. Call out to [facility] in regards to the eye clinic. Appointment set up. Prescriptions called in. Patient is appropriate for outpatient follow-up. Discharge instructions reviewed with patient, as well as provided in writing per nursing staff. The instructions also include specific and strict return/GO TO THE ER as well as f/u information. All questions have been answered, and the patient deny any further questions with discharge and discharge plan. Some parts of this dictation were generated by voice recognition software and may contain typographical and/or grammatical inaccuracies. Differential Diagnosis Differential diagnosis: Likely conjunctivitis, periorbital cellulitis and other (Shingles) Critical Care Time Critical Care Time Critical Care Time: No Discharge Plan Discharge Clinical Impression: Herpes zoster conjunctivitis of right eye Patient Disposition: Home, Self-Care Condition: Stable Instructions: Antibiotic Form, Shingles (ED) Additional Instructions: You have an appointment at 10:30 a.m. at [facility] at 12:25 p.m. [facility] in [place]. Their phone #[phone]. Please arrive at your appointment 15 minutes prior to arrival. Use the erythromycin eye ointment and the Valacyclor as prescribed Follow-up with your primary care provider. Today your blood pressure was 151/82. Patient Language: [place] African Prescriptions: New erythromycin 5 mg/gram (0.5 %) ointment 0.5 inch RIGHT EYE QID Qty: 3.5 0RF valacyclovir 1 gram tablet 1,000 mg PO TID 7 Days Qty: 21 0RF No Action Synjardy XR 5-1,000 mg tablet, IR - ER, biphasic 24hr 1 tablet PO DAILY fluticasone propionate [Flonase Allergy Relief] 50 mcg/actuation spray,suspension 1 spray intranasal DAILY Rx Instructions: administer into each nostril tqdufonucevg-qtxkwudp-tiklws Tablet 1 tablet PO DAILY chlorpheniramine maleate [Allergy (chlorpheniramine)] 4 mg tablet 4 mg PO Q6H PRN (Reason: Allergy Symptoms) Rx Instructions: do not exceed 2 doses per 24 hrs magnesium 200 mg tablet 400 mg PO DAILY fluocinonide 0.05 % solution 1 applic topical BID PRN (Reason: itching) Qty: 60 2RF hyoscyamine sulfate 0.125 mg tablet 0.125 mg PO QID PRN (Reason: dyspepsia) Qty: 30 2RF montelukast 10 mg tablet 10 mg PO DAILY Qty: 90 2RF famotidine 40 mg tablet 40 mg PO DAILY Qty: 90 2RF ezetimibe [Zetia] 10 mg tablet 10 mg PO DAILY Qty: 90 2RF tizanidine 2 mg tablet See Rx Instructions .ROUTE .COMPLEX Qty: 90 2RF Dose Instruction: TAKE 1 TABLET BY MOUTH DAILY FOR MUSCLE SPASMS Rx Instructions: TAKE 1 TABLET BY MOUTH DAILY FOR MUSCLE SPASMS calcium carbonate 500 mg calcium (1,250 mg) tablet 500 mg PO DAILY cholecalciferol (vitamin D3) [Vitamin D3] 125 mcg (5,000 unit) tablet 125 mcg PO DAILY evening primrose oil 500 mg capsule 1,000 mg PO DAILY Rx Instructions: give with meal/snack lancets [Base79Touch Delica Plus Lancet] 30 gauge misc See Rx Instructions .ROUTE .COMPLEX Qty: 100 1RF Dose Instruction: CHECK BLOOD SUGAR ONCE DAILY Rx Instructions: CHECK BLOOD SUGAR ONCE DAILY albuterol sulfate [ProAir HFA] 90 mcg/actuation HFA aerosol inhaler 1 puff INHALATION Q4H PRN (Reason: Shortness Of Breath Or Wheezing) Qty: 8.5 2RF epinephrine 0.3 mg/0.3 mL auto-injector 0.3 ml subcut ONCE PRN (Reason: anaphylaxis) Qty: 2 2RF Rx Instructions: as a single dose; may repeat once (DME) OneTouch Ultra Test Strip See Rx Instructions .ROUTE .COMPLEX Qty: 100 3RF Dose Instruction: USE TO TEST BLOOD SUGAR LEVELS THREE TIMES WEEKLY DIRECTED Rx Instructions: USE TO TEST BLOOD SUGAR LEVELS THREE TIMES WEEKLY DIRECTED amitriptyline 25 mg tablet See Rx Instructions .ROUTE .COMPLEX Qty: 90 2RF Dose Instruction: TAKE 1 TABLET BY MOUTH EVERY NIGHT AT BEDTIME Rx Instructions: TAKE 1 TABLET BY MOUTH EVERY NIGHT AT BEDTIME metformin 1,000 mg tablet 1,000 mg PO BID Qty: 180 0RF Januvia 50 mg tablet 50 mg PO DAILY Qty: 90 0RF Follow-up/Referrals: [facility] MD [Primary Care Provider] - 1 Week ([facility] follow up ) Time of Disposition: 13:00
[2024-12-17 11:48] VITALS: BP 151/82; PULSE 88; RESP 16; TEMP 36.4; O2SAT 99
[2024-12-17] MEDS: TETRACAINE HCL 0.5% OPHTH SOLN 4 ML BTL 1 DROP EACH EYE (12:06)
[2024-12-17] MEDS: FLUORESCEIN SOD 1 MG/STRIP EACH EYE (12:06)
== END 2024-12-17 13:05 | disposition home or self-care (01) ==
PROVIDERS: Emergency Provider Nurse Practitioner; PCP Emergency Medicine
DX: B02.31 Zoster conjunctivitis (principal); Z87.891 Personal history of nicotine dependence; K21.9 Gastro-esophageal reflux disease without esophagitis; E78.5 Hyperlipidemia, unspecified; M79.7 Fibromyalgia; E78.2 Mixed hyperlipidemia; G25.81 Restless legs syndrome; E11.9 Type 2 diabetes mellitus without complications; Z79.84 Long term (current) use of oral hypoglycemic drugs; E55.9 Vitamin D deficiency, unspecified
CPT/HCPCS: 99213; G0463

== ENCOUNTER 2025-05-01 07:21 | Emergency (ER) | payer MEDICARE, SELFPAY ==
--- NOTE | ~2025-05-01 | CT_ITS ---
Non-contrast Head CT History: Status post fall Technique: Axial non-contrast imaging of the brain was performed. Dose reduction technique was used on this scan by utilizing automated exposure control and iterative reconstruction technique. The dose -length product (DLP) was 605.33 mGy-cm. Findings: There is no evidence of intracranial hemorrhage, mass lesion, or acute infarct. Brain par enchyma appears normal. The ventricles and subarachnoid spaces are normal in size. The calvarium ap pears normal. The visualized paranasal sinuses and mastoid air cells are clear. Impression: No significant abnormality seen. Reviewed, dictated and finalized at location . Impression: No significant abnormality seen.
--- NOTE | ~2025-05-01 | CT_ITS ---
Noncontrast CT scan of the cervical spine Technique: Multiple contiguous axial [address] images of the cervical spine were obtained and rec onstructed in 2D sagittal and coronal planes on the acquisition scanner. Dose reduction technique was used on this scan by utilizing automated exposure control, adjustment of the mA and/or kV according to patient size. The dose-length product (DLP) was 460.26 mGy-cm. Clinical History: Pain Findings: No acute fracture. There is grade 1 retrolisthesis of C5 over C6. There is moderate to adva nced degenerative distended C5-C6 and C6-C7. There are scattered facet joint degenerative changes of the cervical spine. There is bilateral neural foraminal narrowing at C3-C4. There is left neural fora yin narrowing at C4-C5. There is right neural foraminal narrowing at C5-C6. No prevertebral soft ti ssue swelling. Impression: No fracture. Grade 1 retrolisthesis of C5 over C6. Moderate degenerative spondylosis, as above. Reviewed, dictated and finalized at [facility]. Impression: No fracture. Grade 1 retrolisthesis of C5 over C6. Moderate degenerative spondylosis, as above.
--- OUTSIDE RECORDS SUMMARY | 2025-05-01 07:24 | XMS_ITS | Clinical Summary ---
Author Organization [facility] Address [address] [place] [address] Care Team Providers Care Store Stock Help Name Role Phone Unavailable Primary Care Provider Unavailabl e Source Comments [facility] [employer],non-owned Affiliates and Associated Physician Practices is amultiple site organization consisting of ambulatory clinics and hospital sitesin [place], [place]. This disclosure is being madepursuant to the Care Everywhere program and may not contain all information available regarding this patient. 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 Gender Identity Not on file Sexual Orientation Not on file Plan of Treatment Health Maintenance Due Date Last Done Comments BONE DENSITY TESTING 1956 COLOGUARD (AGES 45-75) - COL ON CA SCREENING 1956 COLON MONITORING 1956 COLONOSCOPY - COLON CA SCREENING 1956 CT COLONOGRAPHY - COLON CA SCREENING 1956 Colorectal Cancer Screening 1956 FIT - COLON CA SCREENING 1956 FLEX SIG - COLON CA SCREENING 1956 LIPID TESTING 1956 MAMMOGRAM 1956 HEPATITIS C SCREENING 12/06/1974 DTAP/TDAP/TD VACCINES (1 - Tdap) 1975 PNEUMOCOCCAL VACCINE 50+ (1 of 1 - PCV) 2006 ZOSTER VACCINE (1 of 2) 2006 COVID-19 VACCINE ( - 2023-2 5 season) 2024 DEPRESSION SCREENING 10/16/2024 MEDICARE AWV CALENDAR YEAR 2024 INFLUENZA VACCINE (#1) 2025 Respiratory Syncytial Virus (RSV) Vaccine Pt: or over 60 yrs (1 - 1-dose 75+ series) 2031 HEPATITIS B VACCINE Aged Out No longe r eligible based on patient's age to complete this topic HIB VACCINE Aged Out No longer eligi ble based on patient's age to complete this topic HPV VACCINE Aged Out No longer eligi ble based on patient's age to complete this topic MENINGOCOCCAL (Group B) VACC INE SHARED DECISION-MAKING Aged Out No longer eligibl e based on patient's age to complete this topic MENINGOCOCCAL GROUPS A/C/Y/W VACCINE Aged Out No longer eligible b ased on patient's age to complete this topic Insurance [employer] MANAGED MEDICARE ADV
--- OUTSIDE RECORDS SUMMARY | 2025-05-01 07:24 | XMS_ITS | Clinical Summary ---
Author Organization [facility] Address [address] [place] [id number] Care Team Providers Care Fleet Administrator Name Role Phone Unavailable Primary Care Provider Unavailabl e Social History Tobacco Use Types Packs/Day Years Used Date Smoking Tobacco: Never Assessed Comments Unknown Sex and Gender Information Value Date Recorded Sex Assigned at Not on file Legal Sex Female 8:33 PM CDT Gender Identity Not on file Sexual Orientation Not on file Plan of Treatment Health Maintenance Due Date Last Done Comments Colorectal Cancer Screening Colonoscopy (10 Years) 1956 Hepatitis C 1974 DTaP, Tdap and Td Vaccines ( 1 - Tdap) 1975 Mammogram Screening 1996 Pneumococcal Vaccine: 50+ Ye ars (1 of 1 - PCV) 2006 Zoster Vaccines (1 of 2) 2006 Dexa Scan (General) 2021 COVID-19 Vaccine ( - 2023-2 5 season) 2024 RSV Immunization or 60+ Years (1 - 1-dose 75+ series) 2031 Meningococcal B Vaccine Aged Out No l onger eligible based on patient's age to complete this topic Meningococcal Vaccine Aged Out No moise dony eligible based on patient's age to complete this topic RSV Immunizations Under 20 Months Aged Out No longer eligible based on patient's age to complete this topic
[2025-05-01 07:26] VITALS: BP 135/72; PULSE 70; RESP 16; TEMP 36.7; O2SAT 96
--- OUTSIDE RECORDS SUMMARY | 2025-05-01 08:00 | XMS_ITS | Clinical Summary ---
Author Organization [facility] Address [address] [place] [address] Care Team Providers Care Regulatory Affairs Spec Name Role Phone Unavailable Primary Care Provider Unavailabl e Source Comments [facility] [employer],non-owned Affiliates and Associated Physician Practices is amultiple site organization consisting of ambulatory clinics and hospital sitesin [place], [place], [place] and [place]. This disclosure is being madepursuant to the Care Everywhere program and may not contain all information available regarding this patient. 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
--- OUTSIDE RECORDS SUMMARY | 2025-05-01 08:00 | XMS_ITS | Clinical Summary ---
Author Organization [facility] Address [address] [place] [address] Care Team Providers Care Wash Helper Name Role Phone Unavailable Primary Care Provider [...]
--- NOTE | 2025-05-01 08:53 | ED.FALL ---
HPI - Fall General Chief Complaint: Fall Stated Complaint: fall, hit head, no thinners, no LOC Time Seen by Provider: 05/01/25 07:36 Source: patient Mode of arrival: ambulatory Limitations: no limitations History of Present Illness HPI Narrative: 69-year-old with a history of hypertension, hyperlipidemia, diabetes here with a complains of fall. Patient states that she slipped and fell in her kitchen on the hard tile she denies any LOC complains of mild headache in the occipital area and in the neck. MD complaint: fall Onset (ago): hour(s) (2) Fall from: standing Fall witnessed: yes, by family Place fall occurred: home Loss of consciousness: none Prolonged down time: no Symptoms prior to fall: none Context: tripped/slipped Location of injury: head and neck Related Data Home Medications ?Medication ?Instructions ?Recorded ?Confirmed ?Last Taken ?Type calcium carbonate 500 mg PO DAILY 12/06/19 04/07/25 Unknown History cholecalciferol (vitamin D3) 125 125 mcg PO DAILY 12/06/19 04/07/25 Unknown History mcg (5,000 unit) tablet (Vitamin D3) fluticasone propionate 50 1 spray intranasal DAILY 06/08/21 04/07/25 Unknown History mcg/actuation nasal spray,suspension (Flonase Allergy Relief) magnesium 200 mg tablet 400 mg PO DAILY 09/15/21 04/07/25 Unknown History chlorpheniramine maleate 4 mg 4 mg PO Q6H PRN Allergy Symptoms 12/28/22 04/07/25 Unknown History tablet (Allergy (chlorpheniramine)) evening primrose oil 500 mg capsule 1,000 mg PO DAILY 12/28/22 04/07/25 Unknown History xbkmdcxtepke-qsznznul-gmegob tablet 1 tablet PO DAILY 12/28/22 04/07/25 Unknown History empagliflozin 5 mg-metformin ER 1 tablet PO DAILY 12/17/24 04/07/25 Unknown History 1,000 mg tablet,extended release 24 hr (Synjardy XR) Allergies Allergy/AdvReac Type Severity Reaction Status Date / Time loratadine Allergy Intermediate Rash Verified 04/07/25 11:04 semaglutide (From Rybelsus) Allergy Intermediate Abdominal Verified 04/07/25 11:04 Pain acetaminophen Allergy Mild Rash Verified 04/07/25 11:04 cetirizine Allergy Mild Rash Verified 04/07/25 11:04 ibuprofen Allergy Mild Rash Verified 04/07/25 11:04 oxycodone Allergy Mild N/V Verified 04/07/25 11:04 Penicillins Allergy Mild BLISTERS Verified 04/07/25 11:04 SKIN WHEN SHE URINATES propoxyphene Allergy Mild N/V Verified 04/07/25 11:04 adhesive tape Allergy Unknown Rash Verified 04/07/25 11:04 amoxicillin AdvReac Intermediate Blister Verified 04/07/25 11:04 Fhhpcft-DJB-CtH Reductase AdvReac Intermediate Leg Verified 04/07/25 11:04 Inhibitor cramps, pain citrus Allergy Intermediate Hives / Uncoded 04/07/25 11:04 Red Face SHELLFISH AdvReac Intermediate Hives / Uncoded 04/07/25 11:04 Red Face Review of Systems Review of Systems: All systems reviewed & are unremarkable except as noted in HPI and below Constitutional: Constitutional: Reports no additional constitutional complaints Eyes: Eyes: Reports no additional eye complaints ENT: Reports system reviewed and no additional complaints, except as documented Cardiovascular: Cardiovascular: Reports no additional cardiovascular complaints Respiratory: Respiratory: Reports no additional respiratory complaints Gastrointestinal: Gastrointestinal: Reports no additional gastrointestinal complaints Musculoskeletal: Musculoskeletal: Reports no additional musculoskeletal complaints Neurologic: Reports system reviewed and no additional complaints, except as documented Psychiatric: Psychiatric: Reports no additional psychiatric complaints PMFSH Past Medical History Medical History Urinary tract infection Foot fracture GERD (gastroesophageal reflux disease) SOB (shortness of breath) Atypical chest pain Esophageal spasm Hiatal hernia Hyperlipidemia BMI 40.0-44.9, adult Beau's line Fibromyalgia Irritable bowel syndrome Mixed hyperlipidemia Restless legs syndrome Type 2 diabetes mellitus without complication, without long-term current use of insulin Vitamin D deficiency Surgical History Surgical History H/O tooth extraction H/O lithotripsy Hx of kidney removal Family History Family History Mother Family history of arthritis, Onset Age: 71 Social History Social History Smoking packs per day: 0.3 Smoking cigarettes per day: 6.0 Years smoked: 15 Smoking pack-years: 4.50 Smoking status: Former smoker Second hand tobacco smoke exposure: No Smoking end date: 10/20/93 Alcohol intake: current Alcohol use details: 2 per year Substance use: never Substance use type: does not use Do You Feel Safe in your Home?: Yes Lack of Transportation: No Lack of Food: Never True Current Housing: I Have Housing Concerned About Future Housing: No Difficulty Paying Gas/Electric Bills: No Difficulty Paying for Meds: No Currently Unemployed: No Education: Associate Degree Difficulty w/ Childcare or Family Care: No Gender identity (if verbalized by the patient): Female Exam Narrative: GENERAL: Well-appearing, well-nourished, and in no acute distress. HEAD: Normocephalic, atraumatic. EYES: PERRLA and EOMI. ENT: Nares clear, Mucous membranes moist. NECK: Supple. CHEST: Clear to auscultation. No respiratory distress. HEART: Regular rate and rhythm. No murmur heard. Normal peripheral pulses. EXTREMITIES: Normal range of motion. No edema. SKIN: Warm, dry, no rash. NEURO: No focal deficits. Alert and oriented x3. PSYCH: Normal mood and affect. Course Course Emergency Course: Informed patient about her CT findings. Advised to take Tylenol or ibuprofen for pain, rest, follow-up with the primary doctor as needed Vital Signs Vital signs: Vital Signs Temperature 36.7 C 05/01/25 07:26 Pulse Rate 70 05/01/25 07:26 Respiratory Rate 16 05/01/25 07:26 Blood Pressure 135/72 05/01/25 07:26 Pulse Oximetry 96 05/01/25 07:26 Oxygen Delivery Room Air 05/01/25 07:26 Temperature 36.7 C 05/01/25 07:26 Pulse Rate 70 05/01/25 07:26 Respiratory Rate 16 05/01/25 07:26 Blood Pressure 135/72 05/01/25 07:26 Pulse Oximetry 96 05/01/25 07:26 Oxygen Delivery Room Air 05/01/25 07:26 MDM - Fall MDM Narrative Medical decision making narrative: 69-year-old with a history of hypertension, diabetes mechanical fall do a CT of the head and C-spine to rule out internal cerebral bleed or C-spine fracture. Differential Diagnosis Differential diagnosis: Likely concussion with loss of consciousness and concussion without loss of consciousness Medical Records Attestation: I reviewed the patient's medical records. Imaging Data Radiologist's impression: ITS Impressions Head CT 05/01/25 08:12 Impression: No significant abnormality seen. Cervical Spine CT 05/01/25 08:13 Impression: No fracture. Grade 1 retrolisthesis of C5 over C6. Moderate degenerative spondylosis, as above. Discharge Plan Discharge Clinical Impression: Minor closed head injury Patient Disposition: Home Condition: Stable Instructions: Head Injury (ED) Additional Instructions: Continue home medications can take Tylenol for pain as needed Patient Language: Malaysian Prescriptions: No Action Synjardy XR 5-1,000 mg tablet, IR - ER, biphasic 24hr 1 tablet PO DAILY fluticasone propionate [Flonase Allergy Relief] 50 mcg/actuation spray,suspension 1 spray intranasal DAILY Rx Instructions: administer into each nostril qmwguefshlid-howshotx-jwgcgg Tablet 1 tablet PO DAILY chlorpheniramine maleate [Allergy (chlorpheniramine)] 4 mg tablet 4 mg PO Q6H PRN (Reason: Allergy Symptoms) Rx Instructions: do not exceed 2 doses per 24 hrs (DME) Find [employer] (FIG)Touch Ultra Test Strip See Rx Instructions .ROUTE .COMPLEX Qty: 100 3RF Dose Instruction: USE TO TEST BLOOD SUGAR LEVELS THREE TIMES WEEKLY DIRECTED Rx Instructions: USE TO TEST BLOOD SUGAR LEVELS UP TO THREE TIMES A DAY DIRECTED magnesium 200 mg tablet 400 mg PO DAILY fluocinonide 0.05 % solution 1 applic topical BID PRN (Reason: itching) Qty: 60 2RF hyoscyamine sulfate 0.125 mg tablet 0.125 mg PO QID PRN (Reason: dyspepsia) Qty: 30 2RF montelukast 10 mg tablet 10 mg PO DAILY Qty: 90 2RF famotidine 40 mg tablet 40 mg PO DAILY Qty: 90 2RF tizanidine 2 mg tablet See Rx Instructions .ROUTE .COMPLEX Qty: 90 2RF Dose Instruction: TAKE 1 TABLET BY MOUTH DAILY FOR MUSCLE SPASMS Rx Instructions: TAKE 1 TABLET BY MOUTH DAILY FOR MUSCLE SPASMS calcium carbonate 500 mg calcium (1,250 mg) tablet 500 mg PO DAILY cholecalciferol (vitamin D3) [Vitamin D3] 125 mcg (5,000 unit) tablet 125 mcg PO DAILY evening primrose oil 500 mg capsule 1,000 mg PO DAILY Rx Instructions: give with meal/snack lancets [OneTouch Delica Plus Lancet] 30 gauge misc See Rx Instructions .ROUTE .COMPLEX Qty: 100 1RF Dose Instruction: CHECK BLOOD SUGAR ONCE DAILY Rx Instructions: CHECK BLOOD SUGAR ONCE DAILY albuterol sulfate [ProAir HFA] 90 mcg/actuation HFA aerosol inhaler 1 puff INHALATION Q4H PRN (Reason: Shortness Of Breath Or Wheezing) Qty: 8.5 2RF epinephrine 0.3 mg/0.3 mL auto-injector 0.3 ml subcut ONCE PRN (Reason: anaphylaxis) Qty: 2 2RF Rx Instructions: as a single dose; may repeat once amitriptyline 25 mg tablet See Rx Instructions .ROUTE .COMPLEX Qty: 90 2RF Dose Instruction: TAKE 1 TABLET BY MOUTH EVERY NIGHT AT BEDTIME Rx Instructions: TAKE 1 TABLET BY MOUTH EVERY NIGHT AT BEDTIME ezetimibe 10 mg tablet See Rx Instructions .ROUTE .COMPLEX Qty: 90 2RF Dose Instruction: TAKE 1 TABLET BY MOUTH DAILY Rx Instructions: TAKE 1 TABLET BY MOUTH DAILY metformin 1,000 mg tablet See Rx Instructions .ROUTE .COMPLEX Qty: 180 2RF Dose Instruction: TAKE 1 TABLET BY MOUTH TWICE DAILY Rx Instructions: TAKE 1 TABLET BY MOUTH TWICE DAILY pioglitazone [Actos] 45 mg tablet 45 mg PO DAILY Qty: 90 2RF Follow-up/Referrals: [facility] MD [Primary Care Provider] - Time of Disposition: 08:59
[2025-05-01 09:07] VITALS: BP 148/72; PULSE 68; RESP 16; TEMP 36.6; O2SAT 100
== END 2025-05-01 09:07 | disposition home or self-care (01) ==
PROVIDERS: Emergency Provider Family Medicine; PCP Emergency Medicine
DX: S09.90XA Unspecified injury of head, initial encounter (principal); E78.5 Hyperlipidemia, unspecified; M79.7 Fibromyalgia; E78.2 Mixed hyperlipidemia; E11.9 Type 2 diabetes mellitus without complications; E55.9 Vitamin D deficiency, unspecified; G25.81 Restless legs syndrome; K58.9 Irritable bowel syndrome, unspecified; K21.9 Gastro-esophageal reflux disease without esophagitis; Z87.440 Personal history of urinary (tract) infections; Z87.891 Personal history of nicotine dependence; Z90.5 Acquired absence of kidney; M47.812 Spondylosis without myelopathy or radiculopathy, cervical region; Z79.84 Long term (current) use of oral hypoglycemic drugs; Z79.899 Other long term (current) drug therapy; W01.0XXA Fall on same level from slipping, tripping and stumbling without subsequent striking against object, initial encounter
CPT/HCPCS: 70450; 72125; 99284

== ENCOUNTER 2025-09-13 18:33 | Emergency (ER) | payer MEDICARE, SELFPAY ==
--- NOTE | ~2025-09-13 | XR_ITS ---
EXAMINATION: XR chest 2V, 09/13/2025 18:48 [facility] HISTORY: SOB COMPARISON: No comparisons available. Technique: 2 views obtained. Findings: The lungs are clear, no effusion. No pneumothorax. Heart is normal size. Mediastinal and hilar contours are within normal limits. Bony thorax no acute abnormality. Impression: No acute cardiopulmonary abnormality. Reviewed, dictated and finalized at location [facility] Impression: No acute cardiopulmonary abnormality.
[2025-09-13 18:34] VITALS: BP 148/63; PULSE 102; RESP 19; TEMP 37.1; O2SAT 98
--- OUTSIDE RECORDS SUMMARY | 2025-09-13 18:35 | XMS_ITS | Clinical Summary ---
Author Organization [facility] Address [address] [place] [id number] Care Team Providers Care Plant Safety Leader Name Role Phone Unavailable Primary Care Provider [...] Scan (General) 2021 COVID-19 Vaccine ( - 2024-2 6 season) 2025 Influenza Adult (#1) 2025 RSV Immunization or 60+ Years (1 - 1-dose 75+ series) 2031 Hepatitis A Vaccines Aged Out No long er eligible based on patient's age to complete this topic Meningococcal B Vaccine Aged Out No l onger eligible based on patient's age to complete this topic Meningococcal Vaccine Aged Out No moise dony eligible based on patient's age to complete this topic RSV Immunizations Under 20 Months Aged Out No longer eligible based on patient's age to complete this topic
--- OUTSIDE RECORDS SUMMARY | 2025-09-13 18:35 | XMS_ITS | Clinical Summary ---
Author Organization [facility] Address [address] [place] [address] Care Team Providers Care Virology Teacher Name Role Phone Unavailable Primary Care Provider Unavailabl e Source Comments [facility] [employer],non-owned Affiliates and Associated Physician Practices is amultiple site organization consisting of ambulatory clinics and hospital sitesin [place], [place], [place] and [place]. This disclosure is being madepursuant to the Care Everywhere program and may not contain all information available regarding this patient. 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
--- NOTE | 2025-09-13 18:53 | ED.URI ---
HPI - URI/Sore Throat General Chief Complaint: Upper Respiratory Infection Stated Complaint: SOB Time Seen by Provider: 09/13/25 18:54 Focused HPI: Patient is a 69-year-old female who presents to the ER with a 2 day history of congestion, cough and wheezing. She reports she has had difficulty taking a deep breath. Patient reports she has had a low-grade fever the last 2 days. She endorses a history of bronchitis and pre diabetes. Patient denies any lower extremity swelling, chest pain, or acute back pain. She is requesting a breathing treatment and steroids. GENERAL: Well-appearing, obese, and in no acute distress. HEAD: Normocephalic, atraumatic. CHEST: Clear to auscultation. ?No respiratory distress. HEART: Regular rate and rhythm.? NEURO: ?Alert and oriented x3. Patient screened in triage and initial orders placed.? ?Additional care and disposition to be based upon?diagnostic testing and treatment. Related Data Home Medications ?Medication ?Instructions ?Recorded ?Confirmed ?Last Taken ?Type calcium carbonate 500 mg PO DAILY 12/06/19 08/12/25 Unknown History cholecalciferol (vitamin D3) 125 125 mcg PO DAILY 12/06/19 08/12/25 Unknown History mcg (5,000 unit) tablet (Vitamin D3) fluticasone propionate 50 1 spray intranasal DAILY 06/08/21 08/12/25 Unknown History mcg/actuation nasal spray,suspension (Flonase Allergy Relief) magnesium 200 mg tablet 400 mg PO DAILY 09/15/21 08/12/25 Unknown History chlorpheniramine maleate 4 mg 4 mg PO Q6H PRN Allergy Symptoms 12/28/22 08/12/25 Unknown History tablet (Allergy (chlorpheniramine)) evening primrose oil 500 mg capsule 1,000 mg PO DAILY 12/28/22 08/12/25 Unknown History uavuoearhqmw-pvwhwcux-ctbkmp tablet 1 tablet PO DAILY 12/28/22 08/12/25 Unknown History Allergies Allergy/AdvReac Type Severity Reaction Status Date / Time loratadine Allergy Intermediate Rash Verified 08/27/25 13:57 semaglutide (From Rybelsus) Allergy Intermediate Abdominal Verified 08/27/25 13:57 Pain acetaminophen Allergy Mild Rash Verified 08/27/25 13:57 cetirizine Allergy Mild Rash Verified 08/27/25 13:57 ibuprofen Allergy Mild Rash Verified 08/27/25 13:57 oxycodone Allergy Mild N/V Verified 08/27/25 13:57 Penicillins Allergy Mild BLISTERS Verified 08/27/25 13:57 SKIN WHEN SHE URINATES propoxyphene Allergy Mild N/V Verified 08/27/25 13:57 adhesive tape Allergy Unknown Rash Verified 08/27/25 13:57 amoxicillin AdvReac Intermediate Blister Verified 08/27/25 13:57 Cmfhbzf-WKP-FkT Reductase AdvReac Intermediate Leg Verified 08/27/25 13:57 Inhibitor cramps, pain citrus Allergy Intermediate Hives / Uncoded 08/27/25 13:57 Red Face SHELLFISH AdvReac Intermediate Hives / Uncoded 08/27/25 13:57 Red Face Review of Systems Review of Systems: All systems reviewed & are unremarkable except as noted in HPI and below PMFSH Past Medical History Medical History Urinary tract infection Foot fracture GERD (gastroesophageal reflux disease) SOB (shortness of breath) Atypical chest pain Esophageal spasm Hiatal hernia Hyperlipidemia BMI 40.0-44.9, adult Beau's line Fibromyalgia Irritable bowel syndrome Mixed hyperlipidemia Restless legs syndrome Type 2 diabetes mellitus without complication, without long-term current use of insulin Vitamin D deficiency Surgical History Surgical History H/O tooth extraction H/O lithotripsy Hx of kidney removal Family History Family History Mother Family history of arthritis, Onset Age: 71 Social History Social History Smoking packs per day: 0.3 Smoking cigarettes per day: 6.0 Years smoked: 15 Smoking pack-years: 4.50 Smoking status: Former smoker Second hand tobacco smoke exposure: No Smoking end date: 10/20/93 Alcohol intake: current Alcohol use details: 2 per year Substance use: never Substance use type: does not use Lack of Transportation: No Lack of Food: Never True Current Housing: I Have Housing Concerned About Future Housing: No Difficulty Paying Gas/Electric Bills: No Difficulty Paying for Meds: No Currently Unemployed: No Education: Associate Degree Difficulty w/ Childcare or Family Care: No Gender identity (if verbalized by the patient): Female Exam Narrative: GENERAL: Well appearing, obese, non-toxic, in no acute distress. HEAD: Normocephalic, atraumatic. NECK: Supple. No adenopathy, no masses. RESPIRATORY: Airway patent, respirations nonlabored. Clear to auscultation bilaterally, no rales, rhonchi, wheezing. CARDIOVASCULAR: Regular rate and rhythm without murmurs, rubs, or gallops. Peripheral pulses 2+ and equal bilaterally. ABDOMINAL: Soft, nontender, nondistended, no hepatosplenomegaly. Normoactive BS. MUSCULOSKELETAL: Moves all extremities. Strength/ROM intact without gross deformities. SKIN: Warm, dry, normal color. No rashes. NEURO: A&O X3. Speech clear. Cranial nerves II-XII intact. No ataxic movements. PSYCHIATRIC: Appropriate mood and affect. Normal interaction. Course Vital Signs Vital signs: Vital Signs Temperature 37.1 C 09/13/25 18:34 Pulse Rate 102 H 09/13/25 18:34 Respiratory Rate 19 09/13/25 18:34 Blood Pressure 148/63 H 09/13/25 18:34 Pulse Oximetry 98 09/13/25 18:34 Oxygen Delivery Room Air 09/13/25 18:34 Temperature 37.1 C 09/13/25 18:34 Pulse Rate 102 H 09/13/25 18:34 Respiratory Rate 19 09/13/25 18:34 Blood Pressure 148/63 H 09/13/25 18:34 Pulse Oximetry 98 09/13/25 18:34 Oxygen Delivery Room Air 09/13/25 18:34 MDM - URI/Sore Throat MDM Narrative Medical decision making narrative: Patient is a 69-year-old female who presents to the ER with a 2 day history of congestion, cough and wheezing. She reports she has had difficulty taking a deep breath. Patient reports she has had a low-grade fever the last 2 days. She endorses a history of bronchitis and pre diabetes. Patient denies any lower extremity swelling, chest pain, or acute back pain. She is requesting a breathing treatment and steroids. Labs Ordered: COVID/flu/RSV swab Imaging Ordered: Chest x-ray Medications Ordered: Prednisone 40 mg p.o., Tessalon Perles p.o., DuoNeb Results: Pt's chest x-ray indicates The lungs are clear, no effusion. No pneumothorax. Heart is normal size. Mediastinal and hilar contours are within normal limits. Bony thorax no acute abnormality. Diagnosis: Upper respiratory infection Patient Education/Shared MDM: Results of lab work and imaging shared with patient. She endorses improvement of symptoms following medication administration. Patient strongly advised to maintain hydration status upon discharge and follow-up with her PCP as soon as possible. Pt is requesting a prescription for steroids and QVAR, as she has taken this medication in the past and is currently out. She will also be discharged home with a prescription for Tessalon Pearles. Strict return precautions provided. Patient verbalized understanding and is in agreement with plan. Vital signs stable at time of discharge. All questions answered. Differential Diagnosis Differential diagnosis: Likely upper respiratory infection, viral infection, bronchitis and influenza Lab Data Attestation: I reviewed the patient's lab results. Labs: Lab Results 09/13/25 Range/Units 18:46 Influenza A (RT-PCR) Negative (Negative) Influenza B (RT-PCR) Negative (Negative) RSV (RT-PCR) Negative (Negative) SARS-CoV-2 RNA (RT-PCR) Negative (Negative) Imaging Data Attestation: I personally reviewed and interpreted this imaging study as follows: Radiologist's impression: Impressions Chest X-Ray 09/13/25 19:15 Impression: No acute cardiopulmonary abnormality. Discharge Plan Discharge Clinical Impression: Upper respiratory infection, Prediabetes, Bronchitis, History of bronchitis Patient Disposition: Home Condition: Stable Instructions: Antibiotic Form, Upper Respiratory Infection (ED) Additional Instructions: Please return to the ER with any worsening symptoms. Follow-up with primary care provider as soon as possible for further evaluation. Take all medications as prescribed, including regularly scheduled medications. Please remember to drink water to maintain hydration. You may take Tessalon Perles as needed to treat your cough. Patient Language: Azerbaijani Prescriptions: New Qvar RediHaler 40 mcg/actuation HFA aerosol breath activated 2 inh inhalation Q12H Qty: 10.6 0RF Rx Instructions: administer with spacer benzonatate 100 mg capsule 100 mg PO TID Qty: 30 0RF methylprednisolone [Medrol (Sree)] 4 mg tablets,dose pack See Rx Instructions .ROUTE .COMPLEX Qty: 21 0RF Rx Instructions: for 6 days No Action fluticasone propionate [Flonase Allergy Relief] 50 mcg/actuation spray,suspension 1 spray intranasal DAILY Rx Instructions: administer into each nostril mncnqdudzcay-hohpvgeg-lqlmph Tablet 1 tablet PO DAILY chlorpheniramine maleate [Allergy (chlorpheniramine)] 4 mg tablet 4 mg PO Q6H PRN (Reason: Allergy Symptoms) Rx Instructions: do not exceed 2 doses per 24 hrs magnesium 200 mg tablet 400 mg PO DAILY fluocinonide 0.05 % solution 1 applic topical BID PRN (Reason: itching) Qty: 60 2RF hyoscyamine sulfate 0.125 mg tablet 0.125 mg PO QID PRN (Reason: dyspepsia) Qty: 30 2RF famotidine 40 mg tablet 40 mg PO DAILY Qty: 90 2RF tizanidine 2 mg tablet See Rx Instructions .ROUTE .COMPLEX Qty: 90 2RF Dose Instruction: TAKE 1 TABLET BY MOUTH DAILY FOR MUSCLE SPASMS Rx Instructions: TAKE 1 TABLET BY MOUTH DAILY FOR MUSCLE SPASMS calcium carbonate 500 mg calcium (1,250 mg) tablet 500 mg PO DAILY cholecalciferol (vitamin D3) [Vitamin D3] 125 mcg (5,000 unit) tablet 125 mcg PO DAILY evening primrose oil 500 mg capsule 1,000 mg PO DAILY Rx Instructions: give with meal/snack albuterol sulfate [ProAir HFA] 90 mcg/actuation HFA aerosol inhaler 1 puff INHALATION Q4H PRN (Reason: Shortness Of Breath Or Wheezing) Qty: 8.5 2RF epinephrine 0.3 mg/0.3 mL auto-injector 0.3 ml subcut ONCE PRN (Reason: anaphylaxis) Qty: 2 2RF Rx Instructions: as a single dose; may repeat once amitriptyline 25 mg tablet See Rx Instructions .ROUTE .COMPLEX Qty: 90 2RF Dose Instruction: TAKE 1 TABLET BY MOUTH EVERY NIGHT AT BEDTIME Rx Instructions: TAKE 1 TABLET BY MOUTH EVERY NIGHT AT BEDTIME ezetimibe 10 mg tablet See Rx Instructions .ROUTE .COMPLEX Qty: 90 2RF Dose Instruction: TAKE 1 TABLET BY MOUTH DAILY Rx Instructions: TAKE 1 TABLET BY MOUTH DAILY (DME) blood-glucose meter [Contour Next Gen Meter] Mis See Rx Instructions .Route Qty: 1 3RF Rx Instructions: As directed to test blood sugar up to 3 times per day (DME) Contour Next Test Strips Strip See Rx Instructions .Route Qty: 100 3RF Rx Instructions: As directed to test blood sugar up to 3 times a day (DME) lancets [Microlet Lancet] Misc See Rx Instructions .Route Qty: 100 3RF Rx Instructions: As directed to check blood sugar up to 3 times per day (DME) lancing device with lancets [Microlet Next Lancing Device] Kit See Rx Instructions .Route Qty: 1 3RF Rx Instructions: As directed to blood sugar up to 3 times per day pioglitazone 45 mg tablet See Rx Instructions .ROUTE .COMPLEX Qty: 90 2RF Dose Instruction: TAKE 1 TABLET BY MOUTH DAILY Rx Instructions: TAKE 1 TABLET BY MOUTH DAILY montelukast 10 mg tablet See Rx Instructions .ROUTE .COMPLEX Qty: 90 2RF Dose Instruction: TAKE 1 TABLET BY MOUTH DAILY Rx Instructions: TAKE 1 TABLET BY MOUTH DAILY metformin 1,000 mg tablet See Rx Instructions .ROUTE .COMPLEX Qty: 180 2RF Dose Instruction: TAKE 1 TABLET BY MOUTH TWICE DAILY Rx Instructions: TAKE 1 TABLET BY MOUTH TWICE DAILY Follow-up/Referrals: [facility] MD [Primary Care Provider, Internal Medicine] Time of Disposition: 21:24
[2025-09-13 19:29] LABS: Influenza A QL RT-PCR Negative (Negative); Influenza B QL RT-PCR Negative (Negative); RSV RNA, RT-PCR Negative (Negative); SARS-CoV-2 RNA PCR Negative (Negative)
[2025-09-13] MEDS: BENZONATATE 100 MG CAPSULE 200 MG PO (21:21)
[2025-09-13 21:47] VITALS: BP 152/74; PULSE 84; RESP 20; TEMP 36.9; O2SAT 98
== END 2025-09-13 21:49 | disposition home or self-care (01) ==
LOC: ANHED 21:26
PROVIDERS: Emergency Provider Registered Nurse; PCP Emergency Medicine
DX: J40 Bronchitis, not specified as acute or chronic (principal); J06.9 Acute upper respiratory infection, unspecified; R73.03 Prediabetes; Z20.822 Contact with and (suspected) exposure to COVID-19; E78.5 Hyperlipidemia, unspecified; E78.2 Mixed hyperlipidemia; E55.9 Vitamin D deficiency, unspecified; K58.9 Irritable bowel syndrome, unspecified; K21.9 Gastro-esophageal reflux disease without esophagitis; K44.9 Diaphragmatic hernia without obstruction or gangrene; M79.7 Fibromyalgia; Z87.440 Personal history of urinary (tract) infections; Z87.891 Personal history of nicotine dependence; Z79.84 Long term (current) use of oral hypoglycemic drugs; Z79.899 Other long term (current) drug therapy
CPT/HCPCS: 71046; 87637; 99283; A9270; J7512